=== PATIENT | male | born 1980 | race Caucasian/White ===

== ENCOUNTER 2024-12-28 20:38 | Emergency (ER) | payer MEDICAID, OTHER ==
[~2024-12-28] VITALS: Ht 175.3 cm; Wt 101.0 kg
[2024-12-28 20:59] VITALS: O2SAT 98
[2024-12-28 22:45] VITALS: BP 145/98; PULSE 80; RESP 19; TEMP 36.8; O2SAT 99
== END 2024-12-28 22:46 | disposition home or self-care (01) ==
LOC: ER 20:38
DX: F10.129 Alcohol abuse with intoxication, unspecified (principal); Y90.9 Presence of alcohol in blood, level not specified
CPT/HCPCS: 99283